=== PATIENT | male | born 1935 | race Caucasian/White ===

== ENCOUNTER 2024-01-03 10:49 | Outpatient (CLI) | payer OTHER ==
[2024-01-03] MEDS ORDERED: IODIXANOL 320 MG/ML INFUS..BTL 100ML IV ONE (11:02)
[2024-01-03 11:29] LABS: BASOPHILS % (AUTO) 0.6 % (0-1); EOSINOPHILS # (AUTO) 0.1 X10'3 (0-0.9); EOSINOPHILS % (AUTO) 1.7 % (0-6); HEMATOCRIT 43.8 % (42.0-52.0); HEMOGLOBIN 14.8 g/dl (14.0-17.9); LYMPHOCYTES # (AUTO) 1.3 X10'3 (1.1-4.8); LYMPHOCYTES % (AUTO) 20.1 % (21-51); MEAN CORPUSCULAR HEMOGLOBIN 32.2 PG (27.0-31.0); MEAN CORPUSCULAR HGB CONC 33.7 g/dL (33.0-36.5); MEAN CORPUSCULAR VOLUME 95.5 FL (78-98); MEAN PLATELET VOLUME 9.2 FL (7.4-10.4); MONOCYTES # (AUTO) 0.7 X10'3 (0-0.9); MONOCYTES % (AUTO) 11.7 % (2-12); NEUTROPHILS # (AUTO) 4.2 X10'3 (1.8-7.7); NEUTROPHILS % (AUTO) 65.9 % (42-75); PLATELET COUNT 175 X10'3 (140-440); RED BLOOD COUNT 4.59 X10'6 (4.70-6.10); RED CELL DISTRIBUTION WIDTH 13.8 % (11.5-14.5); WHITE BLOOD COUNT 6.4 X10'3 (4.5-11.0)
[2024-01-03 11:36] LABS: APTT 25 SECONDS (22-32); PROTHROMBIN TIME 10.9 SECONDS (9.0-12.0)
[2024-01-03 11:45] LABS: ALANINE AMINOTRANSFERASE 27 U/L (12-78); ALBUMIN 3.2 G/DL (3.4-5.0); ALBUMIN/GLOBULIN RATIO 0.9 (1.1-1.5); ALKALINE PHOSPHATASE 102 IU/L (46-116); ANION GAP 6 (8-16); ASPARTATE AMINO TRANSFERASE 19 U/L (10-37); BILIRUBIN,TOTAL 0.8 MG/DL (0.1-1.0); BLOOD UREA NITROGEN 16 MG/DL (7-18); BUN/CREATININE RATIO 13.1 (10.0-20.0); CALCIUM 9.1 MG/DL (8.5-10.1); CHLORIDE 104 MMOL/L (99-107); CREATININE 1.22 MG/DL (0.60-1.10); GLUCOSE 110 MG/DL (70-104); POTASSIUM 4.4 MMOL/L (3.5-5.1); PRO BRAIN NATRIURETIC PEPTIDE 394 PG/ML (0-450); SODIUM 140 MMOL/L (135-145); TOTAL CARBON DIOXIDE 29.9 MMOL/L (24-32); TOTAL PROTEIN 6.9 G/DL (6.4-8.2); eGFR 56 ML/MIN
== END 2024-01-03 23:59 | disposition home or self-care (01) ==
LOC: RAD 10:49
PROVIDERS: ATTEND Internal Medicine Cardiovascular Disease
DX: I70.0 Atherosclerosis of aorta (principal); K76.89 Other specified diseases of liver; K57.30 Diverticulosis of large intestine without perforation or abscess without bleeding; M47.819 Spondylosis without myelopathy or radiculopathy, site unspecified; I65.29 Occlusion and stenosis of unspecified carotid artery; R06.02 Shortness of breath; I35.0 Nonrheumatic aortic (valve) stenosis; Z96.642 Presence of left artificial hip joint; Z98.890 Other specified postprocedural states
CPT/HCPCS: 36415; 71046; 71275; 74174; 75572; 80053; 83880; 85025; 85610; 85730; Q9967

== ENCOUNTER 2024-02-21 09:54 | Inpatient (IN) | payer OTHER ==
[2024-02-19 10:41] LABS: BILIRUBIN,URINE NEGATIVE (Neg); CLARITY,URINE CLEAR (Clear); COLOR,URINE YELLOW (Yellow); GLUCOSE, URINE NEGATIVE (Neg); KETONES,URINE NEGATIVE (Neg); LEUKOCYTE ESTERASE ,URINE NEGATIVE (Neg); NITRITES, URINE NEGATIVE (Neg); OCCULT BLOOD,URINE TRACE-INTACT (Neg); PH,URINE 5.5 (4.8-8.0); PROTEIN,URINE NEGATIVE (Neg); UROBILINOGEN,URINE 0.2 E.U/dL (0.2-1.0)
[2024-02-19 10:43] LABS: BASOPHILS % (AUTO) 0.7 % (0-1); EOSINOPHILS # (AUTO) 0.1 X10'3 (0-0.9); LYMPHOCYTES # (AUTO) 1.1 X10'3 (1.1-4.8); LYMPHOCYTES % (AUTO) 22.5 % (21-51); MEAN CORPUSCULAR HEMOGLOBIN 32.4 PG (27.0-31.0); MEAN CORPUSCULAR HGB CONC 33.3 g/dL (33.0-36.5); MEAN CORPUSCULAR VOLUME 97.2 FL (78-98); MONOCYTES # (AUTO) 0.6 X10'3 (0-0.9); MONOCYTES % (AUTO) 11.4 % (2-12); NEUTROPHILS # (AUTO) 3.2 X10'3 (1.8-7.7); NEUTROPHILS % (AUTO) 63.4 % (42-75); PRE OP HEMATOCRIT 45.4 % (42.0-52.0); PRE OP HEMOGLOBIN 15.1 g/dL (14.0-17.9); PRE OP PLATELET COUNT 156 X10'3 (140-440); PRE OP WHITE BLOOD COUNT 5.1 10'3 (4.8-10.8); RED BLOOD COUNT 4.67 X10'6 (4.70-6.10); RED CELL DISTRIBUTION WIDTH 13.8 % (11.5-14.5)
[2024-02-19 10:45] LABS: UA COLLECTION TYPE CLN CATCH MIDSTREAM
[2024-02-19 10:47] LABS: MUCUS STRANDS MODERATE /LPF (Neg)
[2024-02-19 10:48] LABS: BACTERIA,URINE FEW /HPF (Neg); COARSE GRANULAR CAST 0-3 /LPF (NEGATIVE); WBC,URINE 0-4 /HPF (0-4)
[2024-02-19 10:49] LABS: SQUAMOUS EPITHELIAL CELL,UR FEW /LPF (FEW)
[2024-02-19 11:04] LABS: ALBUMIN 3.2 G/DL (3.4-5.0); ALBUMIN/GLOBULIN RATIO 0.9 (1.1-1.5); ALKALINE PHOSPHATASE 95 IU/L (46-116); BLOOD UREA NITROGEN 13 MG/DL (7-18); BUN/CREATININE RATIO 10.3 (10.0-20.0); CALCIUM 8.9 MG/DL (8.5-10.1); CHLORIDE 103 MMOL/L (99-107); CREATININE 1.26 MG/DL (0.60-1.10); PRE OP ALT 24 U/L (30-65); PRE OP ANION GAP 7 (8-16); PRE OP AST 21 U/L (10-37); PRE OP BILIRUB, TOTAL 0.8 MG/DL (0.0-1.0); PRE OP GLUCOSE 132 MG/DL (70-104); PRE OP POTASSIUM 4.2 MMOL/L (3.4-5.1); PRE OP SODIUM 138 MMOL/L (135-145); PRO BRAIN NATRIURETIC PEPTIDE 523 PG/ML (0-450); TOTAL CARBON DIOXIDE 28.4 MMOL/L (24-32); TOTAL PROTEIN 6.9 G/DL (6.4-8.2); eGFR 54 ML/MIN
[2024-02-21] VITALS (23 sets, daily range): BP systolic 114–168; BP diastolic 56–81; PULSE 50–95; RESP 10–19; TEMP 97.2–97.9; O2SAT 92–99
[~2024-02-21] VITALS: Ht 162.6 cm; Wt 63.9 kg
[2024-02-21] MEDS: nitroPRUSSIDE (NIPRIDE) (200MCG/ML) 100ML Drip IV SCH (05:30)
[2024-02-21] MEDS: phenylephrine inj 50 MG in normal saline 250ml IV solN IV SCH (05:30)
[2024-02-21] MEDS: clindamycin-Cleocin 900mg/D5W 50 ML IV ONE (05:30)
[~2024-02-21 09:54] MED LIST: ASPI-611 PO; ATOR20TA66 PO; CLON0.1T2 PO; LACT1CAP55 PO; OMEP20CA16 PO; VERA240C2 PO; [UNRECOGNIZED DRUG - OTHER]; [UNRECOGNIZED DRUG - OTHER]
[2024-02-21] MEDS: protamine sulfate 10mg/ml inj. ONE (10:23)
[2024-02-21] MEDS: ringers solution, lacted 1,000 ML IV SCH ×2 (10:38→14:25)
[2024-02-21] MEDS: famotidine 20mg tablet PO ONE (10:40)
[2024-02-21] MEDS: aspirin 325mg tablet PO ONE (10:40)
[2024-02-21] MEDS ORDERED: iohexol 350MG/ML 100ml bottle IV ONE ×2 (12:45→12:56)
[2024-02-21] MEDS ORDERED: LIDOcaine 1% 30ml preserv. free vial ONE ×2 (12:45→12:56)
[2024-02-21] MEDS ORDERED: LIDOcaine 1% (10mg/ml) 2ml vial ONE (12:45)
[2024-02-21] MEDS ORDERED: heparin 1,000 UNITS/NS 500ml 1,500 ML ONE ×2 (12:57→13:06)
[2024-02-21] MEDS ORDERED: fentaNYL/PF 50MCG/1 ML 2ML syringe ONE (13:09)
[2024-02-21] MEDS ORDERED: midazolam 1 mg/ML 2ml injection ONE (13:09)
[2024-02-21] MEDS ORDERED: propofol inj 20 ML IV ONE ×2 (13:16)
[2024-02-21] MEDS ORDERED: proCHLORperazine 10 MG/2 ml inj IV PRN ×2 (14:15→14:25)
[2024-02-21] MEDS ORDERED: magnesium sulf-water 4G/100mL 100 ML IV PRN (14:15)
[2024-02-21] MEDS ORDERED: HYDROcodone/acetaminophen 5mg/325mg tablet PO PRN (14:15)
[2024-02-21] MEDS ORDERED: potassium Cl 40MEQ/1/2NS 520ml 520 ML IV PRN (14:15)
[2024-02-21] MEDS ORDERED: acetaminophen 325mg tablet PO PRN (14:15)
[2024-02-21] MEDS ORDERED: potassium Cl 20 mEq SR tablet PO PRN (14:15)
[2024-02-21] MEDS ORDERED: potassium Cl 20mEq/100mL bag 100 ML IV PRN (14:15)
[2024-02-21] MEDS ORDERED: potassium CL 10mEq/100ml bag 100 ML IV PRN (14:15)
[2024-02-21] MEDS: normal saline 1000ml 1,000 ML IV SCH (14:15)
[2024-02-21] MEDS ORDERED: diphenhydrAMINE 25mg capsule PO PRN (14:15)
[2024-02-21] MEDS ORDERED: pantoprazole 40mg Tablet.DR PO PRN (14:15)
[2024-02-21] MEDS ORDERED: labetalol 20mg/4ml (5mg/ml) syringe IV PRN (14:15)
[2024-02-21] MEDS ORDERED: magnesium sulf-water 2g/50mL 50 ML IV PRN (14:15)
[2024-02-21] MEDS ORDERED: docusate sod 100mg capsule PO PRN (14:15)
[2024-02-21] MEDS ORDERED: ondansetron/PF 4mg/2ml inj IV PRN ×2 (14:15→14:25)
[2024-02-21] MEDS ORDERED: potassium Cl 40MEQ/270ML bag 250 ML IV PRN (14:15)
[2024-02-21] MEDS ORDERED: heparin 1,000unit/ml 10ml vial 10 ML ONE (14:18)
[2024-02-21] MEDS ORDERED: hydrALAZINE 20mg/ml inj. IV PRN (14:25)
[2024-02-21] MEDS ORDERED: morphine 4 MG/ML inj SYRINge IV PRN (14:25)
[2024-02-21] MEDS ORDERED: meperidine/PF 25mg/ml syringe IV PRN ×3 (14:25)
[2024-02-21] MEDS ORDERED: morphine 2 MG/ML inj. syringe IV PRN (14:25)
[2024-02-21] MEDS: acetaminophen 1,000mg/100ml IV 100 ML IV ONE (14:25)
[2024-02-21] MEDS: hydrALAZINE 20mg/ml inj. IV PRN (15:14)
[2024-02-21] MEDS: sod chloride 0.9% 10ml flush syringe IV SCH (16:20)
[2024-02-21] MEDS: labetalol 20mg/4ml (5mg/ml) syringe IV PRN (19:46)
[2024-02-21] MEDS: ondansetron/PF 4mg/2ml inj IV PRN (19:57)
[2024-02-21] MEDS: cloNIDine 0.1 mg tablet PO SCH (19:58)
[2024-02-21] MEDS: pantoprazole 40mg Tablet.DR PO SCH (19:58)
[2024-02-21] MEDS ORDERED: Melatonin 3mg tablet PO PRN (21:10)
[2024-02-22 02:00] VITALS: BP 120/42; PULSE 66; RESP 19; TEMP 97.6; O2SAT 95
[2024-02-22 06:00] VITALS: BP 130/61; PULSE 70; RESP 16; TEMP 97.3; O2SAT 98
[2024-02-22 07:00] LABS: BASOPHILS % (AUTO) 0.3 % (0-1); EOSINOPHILS % (AUTO) 0.6 % (0-6); HEMOGLOBIN 13.3 g/dl (14.0-17.9); LYMPHOCYTES # (AUTO) 0.8 X10'3 (1.1-4.8); MEAN CORPUSCULAR HEMOGLOBIN 32.7 PG (27.0-31.0); MEAN CORPUSCULAR HGB CONC 33.3 g/dL (33.0-36.5); MEAN CORPUSCULAR VOLUME 98.1 FL (78-98); MEAN PLATELET VOLUME 9.3 FL (7.4-10.4); MONOCYTES # (AUTO) 0.9 X10'3 (0-0.9); MONOCYTES % (AUTO) 13.2 % (2-12); NEUTROPHILS # (AUTO) 5.2 X10'3 (1.8-7.7); NEUTROPHILS % (AUTO) 73.9 % (42-75); PLATELET COUNT 97 X10'3 (140-440); RED BLOOD COUNT 4.08 X10'6 (4.70-6.10); RED CELL DISTRIBUTION WIDTH 14.1 % (11.5-14.5)
[2024-02-22 07:23] LABS: ALANINE AMINOTRANSFERASE 17 U/L (12-78); ALBUMIN 2.6 G/DL (3.4-5.0); ALBUMIN/GLOBULIN RATIO 0.9 (1.1-1.5); ALKALINE PHOSPHATASE 69 IU/L (46-116); ANION GAP 1 (8-16); ASPARTATE AMINO TRANSFERASE 22 U/L (10-37); BILIRUBIN,TOTAL 0.7 MG/DL (0.1-1.0); BLOOD UREA NITROGEN 15 MG/DL (7-18); BUN/CREATININE RATIO 12.3 (10.0-20.0); CALCIUM 8.5 MG/DL (8.5-10.1); CHLORIDE 107 MMOL/L (99-107); CREATININE 1.22 MG/DL (0.60-1.10); GLUCOSE 129 MG/DL (70-104); MAGNESIUM 1.5 MG/DL (1.5-2.4); POTASSIUM 4.4 MMOL/L (3.5-5.1); PRO BRAIN NATRIURETIC PEPTIDE 828 PG/ML (0-450); SODIUM 137 MMOL/L (135-145); TOTAL PROTEIN 5.6 G/DL (6.4-8.2); eCRCL 36 ML/MIN; eGFR 56 ML/MIN
[2024-02-22 08:00] VITALS: RESP 16; O2SAT 98
[2024-02-22] MEDS: verapamil SR 120mg (sust. release) tab PO SCH (08:00)
[2024-02-22] MEDS: cloNIDine 0.1 mg tablet PO SCH (08:29)
[2024-02-22] MEDS: atorvastatin 20mg tablet PO SCH (08:29)
[2024-02-22] MEDS: aspirin 81mg, enteric-coated 1 TAB TABLET.DR PO SCH (08:29)
[2024-02-22] MEDS: aspirin 81mg tab.chew PO SCH (08:30)
[2024-02-22 11:00] VITALS: BP 151/79; PULSE 80; RESP 16; TEMP 97.9; O2SAT 94
== END 2024-02-22 12:56 | disposition home or self-care (01) | DRG 267 ==
LOC: PAS IN 09:54 → UNDOADMIN 09:54 → PAS IN 14:14 → UNDOADMIN 14:14 → PCU 3S 16:01 → PAS IN 16:01 → UNDODISIN 02-22 12:56
PROVIDERS: ADMIT Internal Medicine Cardiovascular Disease; ATTEND Internal Medicine Cardiovascular Disease
PROC: B41D1ZZ Fluoroscopy of Aorta and Bilateral Lower Extremity Arteries using Low Osmolar Contrast (ICD-10-PCS; 2024-02-21)
PROC: 03HY32Z Insertion of Monitoring Device into Upper Artery, Percutaneous Approach (ICD-10-PCS; 2024-02-21)
PROC: 02RF38Z Replacement of Aortic Valve with Zooplastic Tissue, Percutaneous Approach (ICD-10-PCS; principal; 2024-02-21 13:04)
DX: I35.0 Nonrheumatic aortic (valve) stenosis (principal); Z00.6 Encounter for examination for normal comparison and control in clinical research program; Z88.0 Allergy status to penicillin; Z88.2 Allergy status to sulfonamides; Z88.8 Allergy status to other drugs, medicaments and biological substances
CPT/HCPCS: 33361; 36415; 71045; 71046; 76937; 80053; 81001; 82948; 83735; 83880; 85025; 85347; 85610; 85730; 86885; 86900; 86901; 86920; 87081; 93005; 93308; A4615; A4618; A6258; A6449; C1756; C1760; C1769; C1894; G0378; J0360; J1644; J2250; J2371; J2405; J2704; J2720; J3010; J3490; J7030; J7040; J7050; J7120; Q9967